=== PATIENT | male | born 2000 | race Caucasian/White ===

== ENCOUNTER 2024-05-29 18:36 | Emergency (ER) | payer BC, SELFPAY ==
[2024-05-29 18:49] VITALS: BP 142/94; PULSE 106; RESP 18; TEMP 37.6; O2SAT 96; BMI 30.1
--- NOTE | 2024-05-29 19:36 | ED_ITS ---
HPI - General Adult General Time Seen by Provider: 19:36 Date Seen: 05/29/24 Chief complaint: Unspecified Complaint, Adult Stated complaint: Lump on neck Time Seen by Provider: 05/29/24 19:36 Source: patient, family and RN notes reviewed Mode of arrival: ambulatory Limitations: no limitations History of Present Illness HPI narrative: Mario is a very pleasant 23-year-old with history of ADHD who comes to the emergency room with his mother for concerns regarding a lump on his left neck. Mario states that he has not been feeling well of your lately. A month ago he was on vacation and developed some back pain. He described it is between his shoulder blades and moving from side to side. He then noted back pain lower in his thoracic spine. At the most the pain is only 3 to 4/10. He did see a doctor 6 days ago at which time he was put on muscle relaxers and was given stretches. He states that the muscle relaxers actually did help. Four days ago he had the onset of discomfort in the left side of his neck. He did not note any redness or abnormality. Last night he had a small marble size swelling on the low neck and today it has become much larger. He has not have any difficulty swallowing or breathing but he notes that it just feels odd. He has not experienced any weight loss or night sweats. He has not had fever or chills. He has noticed that he seems to be more thirsty and he has been urinating quite a bit lately. He denies a sore throat a cough. He was exposed to COVID a month ago. He did not develop any symptoms that he knows of. At this time denies ear pain, chest pain, abdominal pain, nausea vomiting or diarrhea. No unusual lower extremity edema. He does have significant anxiety as his sister had thyroid cancer and this is what he is worried about. Is not noticed his heart racing or unusual weight loss. Related Data Home Medications ?Medication ?Instructions ?Recorded ?Confirmed albuterol sulfate 90 mcg/actuation 2 puff inhalation Q4-6H PRN 03/18/22 aerosol inhaler shortness of breath or wheezing escitalopram oxalate 10 mg tablet 10 mg PO DAILY 05/29/24 05/29/24 Allergies Allergy/AdvReac Type Severity Reaction Status Date / Time No Known Allergies Allergy Unknown Verified 03/17/22 09:49 Review of Systems Status of ROS: Reports: 10 or more systems reviewed and unremarkable except as noted in History and below Const: Denies: fever, chills or change in weight ENMT: Reports: neck pain; Denies: throat pain, throat swelling, difficulty swallowing, hoarseness or nasal congestion Cardio: Denies: chest pain, swelling of feet/ankles, lightheadedness or shortness of breath with exertion Resp: Denies: shortness of breath or cough GI: Denies: abdominal pain, nausea, vomiting, diarrhea or difficulty swallowing : Reports: urinary frequency; Denies: painful urination or urinary urgency Musculo: Reports: neck pain Integ/Breast: Reports: skin tenderness Neuro: Denies: headache Psych: Reports: anxiety Allergy/Immuno: Denies: throat swelling PFSH PFS Medical History Chest pain ?R07.9 - Chest pain, unspecified (ICD-10) 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 No significant distress. External ears eyes nose clear. Neck is supple with a small golf ball size mass that is not tender to the touch at the left lower neck. Appears to be medial to the SCM. No other masses are palpated. No real fluctuance or erythema. There is no significant tenderness. Heart is with regular rate and rhythm and lungs are clear bilaterally. Palpation down thoracic spine without pain. Abdomen is soft nontender. No lymphadenopathy noted in the axilla bilaterally. Lower extremities without edema. Pedal pulses are intact moving all extremities. Const: Vital Signs, click to edit/add: Vital Signs - 24 hr 05/29/24 18:49 Temperature 99.6 F Pulse Rate [Pulse Oximeter] 106 H Respiratory Rate 18 Blood Pressure [Ri ght Upper Arm] 142/94 H Pulse Oximetry 96 Oxygen Delivery Me thod Room Air Documenting provider has reviewed patient's vital signs: yes Course Course ED Course: Differential diagnosis includes but is not limited to lymphadenopathy, thyroid nodule, thyroid cyst, will place IV do labs to include CBC, comprehensive panel, mono, TSH, CRP urinalysis COVID influenza and RSV. Patient is very anxious and he is given Ativan 0.5 mg IV as well as 1 L of normal saline. Reevaluation(s) Reevaluation #1: Soft tissue neck shows a 3 and half by 3 in a 0.5 cm thyroid cyst. Given the rapid increase in size over 24 hours I did consult with both ENT and surgery. At this time will have ultrasound called in per surgeon request. Reevaluation #2: As we were waiting for official thyroid ultrasound read we were informed that t hese are not done overnight. I was able to talk to the head of academic technology who notes that this was a simple cyst. Vital Signs Vital signs: Initial Vital Signs Temperature 99.6 F 05/29/24 18:49 Temperature Source Temporal Artery Scan 05/29/24 18:49 Pulse Rate 106 H 05/29/24 18:49 Respiratory Rate 18 05/29/24 18:49 Blood Pressure 142/94 H 05/29/24 18:49 Blood Pressure Mean 110 H 05/29/24 18:49 Pulse Oximetry 96 05/29/24 18:49 Oxygen Delivery Method Room Air 05/29/24 18:49 Vital Signs Temperature 99.6 F 05/29/24 18:49 Pulse Rate 106 H 05/29/24 18:49 Respiratory Rate 18 05/29/24 18:49 Blood Pressure 142/94 H 05/29/24 18:49 Pulse Oximetry 96 05/29/24 18:49 Oxygen Delivery Method Room Air 05/29/24 18:49 Temperature 99.6 F 05/29/24 18:49 Pulse Rate 106 H 05/29/24 18:49 Respiratory Rate 18 05/29/24 18:49 Blood Pressure 142/94 H 05/29/24 18:49 Pulse Oximetry 96 05/29/24 18:49 Oxygen Delivery Method Room Air 05/29/24 18:49 Medications Administered Medications: Discontinued Medications Generic Name Dose Route Start Last Admin Trade Name Rafy PRN Reason Stop Dose Admin Sodium Chloride 1,000 mls @ 1,000 mls/hr 05/29/24 20:03 05/29/24 21:50 0.9 % Sodium Chloride 1000 Ml IV 05/29/24 21:02 Infused .Q1H REGINALDO Infusion Lorazepam 0.5 mg 05/29/24 20:03 05/29/24 20:20 Lorazepam 2 Mg/Ml Inj IVP 05/29/24 20:04 0.5 mg ONCE ONE Administration Medical Decision Making MDM Narrative Medical decision making narrative: 1. Thyroid cyst-patient notes some mild left neck pain over the last 4 days with the onset of a marble size swelling on the lower neck yesterday now golf ball size. CT did show a 3 and half by 3.5 cm thyroid cyst. There was some mild tracheal deviation. Patient is not complaining of difficulty swallowing nor breathing difficulties. Follow-up ultrasound done in the ED does not have official radiological read but appears to be a simple cyst. I had spoken with our surgeon earlier who suggests radiology guided aspiration with cytology. At this time will attempt arrangement of appointment and further care tomorrow morning. Patient will be called will be called with in regards to appointment. 2. Back pain-given the location of the swelling and complaints of back discomfort did do a chest abdomen and pelvis to ensure there was no evidence of other abnormalities. Patient does have incidental findings of bilateral renal calculi. He and his mom are informed of this. 3. Disposition-home at this time. Return for worsening symptoms and as needed. 0937 05/30/24 Addendum: US official read notes this to be a simple cyst. I was able to speak with Dr. Coreas once again this morning and contacted her office for follow up appt on behalf of the patient. He is scheduled for 11am. I called patient at home and he confirms that he is able to make this appointment. Medical Records Medical records reviewed: Yes I reviewed the patient's medical records Lab Data Lab results reviewed: Yes I reviewed the patient's lab results Labs: Lab Results 05/29/24 05/29/24 Range/Units 20:20 21:58 WBC 5.82 (4.50-11.00) K/uL RBC 5.48 (4.30-5.90) m/uL Hgb 15.7 (13.5-17.5) gm/dL Hct 45.9 (37.0-53.0) % MCV 84 (80-100) fL MCH 29 (26-34) pg MCHC 34 (32-36) gm/dL RDW Coeff of Garrett 12.5 (11.5-15.5) % Plt Count 283 (140-440) K/uL Neut % (Auto) 66.5 (42.0-72.0) % Lymph % (Auto) 23.2 (20-44) % [place] % (Auto) 8.4 (0.0-11.0) % Eos % (Auto) 1.2 (0.0-7.0) % Baso % (Auto) 0.5 (0.0-3.0) % Neut # (Auto) 3.87 (1.7-7.0) K/uL Lymph # (Auto) 1.35 (0.90-2.90) K/uL [place] # (Auto) 0.50 (0.00-0.90) K/UL Eos # (Auto) 0.07 (0.00-0.50) K/uL Baso # (Auto) 0.03 (0.00-0.30) K/uL Abs Immat Gran (auto) 0.01 (0.00-0.30) K/uL Imm/Tot Granulo (auto) 0.2 % Sodium 140 (135-149) mmol/L Potassium 3.9 (3.6-5.1) mmol/L Chloride 104 (96-114) mmol/L Carbon Dioxide 28 (20-32) mmol/L Anion Gap 8 (7-15) mEq/L BUN 15 (5-24) mg/dL Creatinine 0.9 (0.5-1.5) mg/dL Estimated Creat Clear 122.44 Estimated GFR 122 ml/min Glucose 104 (60-115) mg/dL Calcium 9.4 (8.4-10.6) mg/dL Total Bilirubin 0.4 (0.1-1.5) mg/dL AST 19 (12-35) U/L ALT 11 (4-50) U/L Alkaline Phosphatase 58 (40-150) U/L C-Reactive Protein < 0.5 L (0.5-1.0) mg/dL Total Protein 8.2 (6.0-8.3) g/dL Albumin 5.1 H (3.3-5.0) g/dL TSH 0.364 (0.270-4.200) uIU/mL Urine Color Yellow (Yellow) Urine Appearance Cloudy A (Clear) Urine pH 7.0 (5.0-8.5) Ur Specific [place] 1.015 (1.000-1.030) Urine Protein Negative (Negative) Urine Glucose (UA) Negative (Negative) Urine Ketones Negative (Negative) Urine Blood Negative (Negative) Urine Nitrite Negative (Negative) Urine Bilirubin Negative (Negative) Urine Urobilinogen 0.2 (0.2-1.0) Ur Leukocyte Esterase Negative (Negative) Urine RBC 0-2 (0-2) Urine WBC 0-2 (0-5) Ur Squamous Epith Cells Few (None-Few) Urine Bacteria Few A (None) SARS-CoV-2 (PCR) Negative SARS-CoV-2 (Negative) Monoscreen Negative (Negative) Influenza Type A (PCR) Negative PCR FLU A (Negative) Influenza Type B (PCR) Negative PCR FLU B (Negative) RSV (PCR) Negative PCR RSV (Negative) Imaging Data Soft tissue neck CT: Attestation: I have reviewed the pertinent imaging results. Radiologist's impression: No suspicious mucosal based lesion. No pathologically enlarged cervical lymph nodes. Normal parotid and submandibular glands. 3.8 cm left lower pole hypodense thyroid nodule with mild resultant rightward tracheal deviation. The lung apices are clear. The osseous structures are within normal limits. The major vascular structures are normal in appearance. The imaged orbits and intracranial structures are within normal limits. Impression: 3.8 cm hypodense left lower pole thyroid nodule resulting in mild rightward deviation of the trachea. Recommend further ultrasound characterization. CT Chest/Ab/Pelvis: Attestation: I have reviewed the pertinent imaging results. Discharge Plan Discharge Clinical Impression: Cyst, thyroid Patient Disposition: Home, Self-Care Condition: Unchanged Additional Instructions: Await phone call tomorrow morning regarding appointment for aspiration of the cyst contents and follow-up. Return to the emergency room as needed. Prescriptions: No Action escitalopram oxalate 10 mg tablet 10 mg PO DAILY albuterol sulfate 90 mcg/actuation HFA aerosol inhaler 2 puff inhalation Q4-6H PRN (Reason: shortness of breath or wheezing) Follow Up/Referrals: Hari Carter MD [Staff Physician] - Stand Alone Forms: [employer] Info Instructions
--- NOTE | 2024-05-29 20:03 | CRLHL7_ITS ---
For Patients: As a result of the Century Cures Act, medical imaging exams and procedure reports are released immediately into your electronic medical record. You may view this report before your referring provider. If you have questions, please contact your health care provider. Indication: Left anterior cervical mass, back pain. Technique: Contrast-enhanced CT of the neck multiplanar reconstructions utilizing 95 cc Isovue 370 iodinated intravenous contrast. Comparison: None available. Findings: No suspicious mucosal based lesion. No pathologically enlarged cervical lymph nodes. Normal parotid and submandibular glands. 3.8 cm left lower pole hypodense thyroid nodule with mild resultant rightward tracheal deviation. The lung apices are clear. The osseous structures are within normal limits. The major vascular structures are normal in appearance. The imaged orbits and intracranial structures are within normal limits. Impression: 3.8 cm hypodense left lower pole thyroid nodule resulting in mild rightward deviation of the trachea. Recommend further ultrasound characterization. Please note that all CT scans at this facility use dose modulation, iterative reconstruction, and/or weight-based dosing when appropriate to reduce radiation dose to as low as reasonably achievable. Dictated by Marshall Guaman MD @ 05/29/2024 9:10:39 PM (Electronically Signed)
--- NOTE | 2024-05-29 20:04 | CRLHL7_ITS ---
For Patients: As a result of the Century Cures Act, medical imaging exams and procedure reports are released immediately into your electronic medical record. You may view this report before your referring provider. If you have questions, please contact your health care provider. Indication: Neck mass with pain Technique: Postcontrast CT of the chest, abdomen, and pelvis with multiplanar reformats following 95 mL Isovue 370 IV. Comparison: None Findings: Chest: Lungs: No consolidation. No effusion. No pneumothorax. Mediastinum: No acute abnormality appreciated. Left thyroid cyst measures 3.7 x 3.2 centimeters with slight rightward deviation of the trachea. Lymph nodes: No gross lymphadenopathy. Soft tissues: No acute abnormality appreciated. Bones: No acute abnormality appreciated. Abdomen and Pelvis: Hepatobiliary: No significant parenchymal abnormality is appreciated. Spleen: Unremarkable. Pancreas: No acute abnormality appreciated. Adrenal glands: No acute abnormality appreciated. Kidneys: Bilateral nonobstructing renal stones. No hydronephrosis. No significant parenchymal abnormality appreciated. Bowel: No obstruction. No focal perienteric or pericolonic stranding is appreciated. The appendix is visualized and appears unremarkable. Vascular: No acute abnormality appreciated. Lymph nodes: No gross lymphadenopathy. Peritoneum: No free air. No free fluid. : No acute abnormality appreciated. Soft tissues: No acute abnormality appreciated. Bones: No acute fracture. No lytic or blastic lesion. Impression: 1. Left thyroid cyst measures 3.7 centimeters with slight rightward deviation of the trachea. Nonemergent outpatient ultrasound recommended for further characterization. 2. Bilateral nonobstructing renal stones. Please note that all CT scans at this facility use dose modulation, iterative reconstruction, and/or weight-based dosing when appropriate to reduce radiation dose to as low as reasonably achievable. Dictated by Prakash Garcia MD @ 05/29/2024 9:41:11 PM (Electronically Signed)
[2024-05-29] MEDS: 0.9 % SODIUM CHLORIDE 1000 ml 1,000 ML IV (20:20)
[2024-05-29] MEDS: LORazepam 2 MG/ML inj 0.5 MG IVP (20:20)
[2024-05-29 20:43] LABS: Basophils Absolute Auto 0.03 K/uL (0.00-0.30); Basophils Percent Auto 0.5 % (0.0-3.0); Chloride* 104 mmol/L (96-114); Eosinophils Absolute Auto 0.07 K/uL (0.00-0.50); Eosinophils Percent Auto 1.2 % (0.0-7.0); Hematocrit 45.9 % (37.0-53.0); Hemoglobin* 15.7 gm/dL (13.5-17.5); Immature Granulocytes Abs Auto 0.01 K/uL (0.00-0.30); Immature Granulocytes Pct Auto 0.2 %; Lymphocytes Absolute Auto 1.35 K/uL (0.90-2.90); Lymphocytes Percent Auto 23.2 % (20-44); Mean Corpuscular HGB Conc 34 gm/dL (32-36); Mean Corpuscular Hemoglobin 29 pg (26-34); Mean Corpuscular Volume 84 fL (80-100); Monocytes Percent Auto 8.4 % (0.0-11.0); Neutrophils Absolute Auto 3.87 K/uL (1.7-7.0); Neutrophils Percent Auto 66.5 % (42.0-72.0); Platelet Count* 283 K/uL (140-440); RDW Coefficient of Variation % 12.5 % (11.5-15.5); Red Blood Count 5.48 m/uL (4.30-5.90); Slide Review Reflex No; White Blood Count* 5.82 K/uL (4.50-11.00)
[2024-05-29 20:44] LABS: Albumin* 5.1 g/dL (3.3-5.0); Potassium* 3.9 mmol/L (3.6-5.1); Sodium* 140 mmol/L (135-149)
[2024-05-29 20:46] LABS: Creatinine* 0.9 mg/dL (0.5-1.5); Est. Creatinine Clearance* 122.44; Estimated Glomerular Filt Rate 122 ml/min; Mono Screen* Negative (Negative)
[2024-05-29 20:47] LABS: Alanine Aminotransferase* 11 U/L (4-50); Alkaline Phosphatase* 58 U/L (40-150); Anion Gap 8 mEq/L (7-15); Aspartate Amino Transferase* 19 U/L (12-35); Bilirubin Total* 0.4 mg/dL (0.1-1.5); Blood Urea Nitrogen* 15 mg/dL (5-24); Carbon Dioxide* 28 mmol/L (20-32); Glucose* 104 mg/dL (60-115); Total Protein* 8.2 g/dL (6.0-8.3)
[2024-05-29 20:48] LABS: Calcium* 9.4 mg/dL (8.4-10.6)
[2024-05-29 21:11] LABS: C Reactive Protein* < 0.5 mg/dL (0.5-1.0)
[2024-05-29 21:14] LABS: PCR FLU A Negative PCR FLU A (Negative); PCR FLU B Negative PCR FLU B (Negative); PCR RSV Negative PCR RSV (Negative); SARS PCR* Negative SARS-CoV-2 (Negative)
[2024-05-29 21:28] LABS: TSH With Reflex to FT4* 0.364 uIU/mL (0.270-4.200)
--- NOTE | 2024-05-29 22:26 | CRLHL7_ITS ---
For Patients: As a result of the Cures Act, medical imaging exams and procedure reports are released immediately into your electronic medical record. You may view this report before your referring provider. If you have questions, please contact your health care provider. INDICATION: Enlarged thyroid cyst. TECHNIQUE: Ultrasound thyroid with padgett-scale and color Doppler analysis. COMPARISON: CT chest abdomen pelvis 05/29/2024. FINDINGS: Right lobe: 4.5 x 2.0 x 1.2 cm. Lesion 1: None. Left lobe: 6.1 x 4.4 x 2.5 cm. Lesion 1: Cyst measuring 3.7 x 3.7 x 3.4 cm (TR 1) Isthmus: Unremarkable. Echotexture of the thyroid parenchyma is normal. Color Doppler analysis demonstrates normal vascularity. No evidence of lymphadenopathy or parathyroid mass. IMPRESSION: Left-sided thyroid cyst measuring up to 3.7 cm with a TI-RADS category of TR 1. No suspicious thyroid abnormality. - ACR TI-RADS [email or web address] TR1: Benign No FNA TR2: Not Suspicious No FNA TR3: Mildly Suspicious FNA if greater than or equal to 2.5 cm Follow if greater than or equal to 1.5 cm TR4: Moderately Suspicious FNA if greater than or equal to 1.5 cm Follow if greater than or equal to 1 cm TR5: Highly Suspicious FNA if greater than or equal to 1 cm Follow if greater than or equal to 0.5 cm Dictated by Marshall Hernández MD @ 05/30/2024 1:41:00 AM (Electronically Signed)
[2024-05-29 22:37] LABS: Appearance Urine Cloudy (Clear); Bilirubin Urine Negative (Negative); Blood Urine Negative (Negative); Color Urine Yellow (Yellow); Glucose Urine Negative (Negative); Ketones Urine Negative (Negative); Leukocyte Esterase Urine Negative (Negative); Nitrite Urine Negative (Negative); Protein Urine Negative (Negative); Specific Gravity Urine 1.015 (1.000-1.030); Urobilinogen Urine 0.2 (0.2-1.0)
[2024-05-29 22:54] LABS: Bacteria Urine Few; RBC Urine 0-2 (0-2); Squamous Epithelial Cell Urine Few (None-Few); WBC Urine 0-2 (0-5)
== END 2024-05-30 01:19 | disposition home or self-care (01) ==
PROVIDERS: Emergency Provider Family Medicine
DX: E04.1 Nontoxic single thyroid nodule (principal)
CPT/HCPCS: 36415; 70491; 71260; 74177; 76536; 80053; 81001; 84443; 85025; 86140; 86308; 87086; 87631; 96374; 99284; J2060; J7030; Q9967

== ENCOUNTER 2024-06-08 10:57 | Outpatient (CLI) | payer BC, SELFPAY ==
--- NOTE | 2024-06-08 11:15 | CRLHL7_ITS ---
For Patients: As a result of the Century Cures Act, medical imaging exams and procedure reports are released immediately into your electronic medical record. You may view this report before your referring provider. If you have questions, please contact your health care provider. INDICATION : THYROID CYST ASPIRATION TECHNIQUE : Ultrasound-guided fine needle aspiration of thyroid cyst. Comparison : CT 05/29/2024 FINDINGS : PROCEDURE: After the informed consent and time-out, ultrasound-guided aspiration of the thyroid nodule performed. 20 cc of clear fluid removed and discarded. No residual mass. Lidocaine was used for local anesthesia. No suspicious findings. Real-time imaging was used for guidance and needle placement. Post imaging ultrasound demonstrates no immediate complication. IMPRESSION : Successful ultrasound-guided aspiration of thyroid cyst. Dictated by Santiago Hayes MD @ 06/08/2024 12:02:11 PM (Electronically Signed)
== END 2024-06-08 10:58 | disposition home or self-care (01) ==
LOC: US 10:57
PROVIDERS: PCP Family Medicine; Visit Provider Surgery
DX: E04.1 Nontoxic single thyroid nodule (principal)
CPT/HCPCS: 10005

== ENCOUNTER 2025-04-27 13:32 | Outpatient (CLI) | payer BC, SELFPAY ==
--- NOTE | 2025-04-27 14:00 | CRLHL7_ITS ---
For Patients: As a result of the Century Cures Act, medical imaging exams and procedure reports are released immediately into your electronic medical record. You may view this report before your referring provider. If you have questions, please contact your health care provider. INDICATION: Anterior neck pain. COMPARISON: 05/29/2024. TECHNIQUE: CT soft tissue neck with IV contrast. Isovue 370, 115 cc IV FINDINGS: Normal bilateral parotid and submandibular glands. Compared to the previous exam, interval decrease in size of a low-attenuation cystic lesion of the left thyroid lobe now measuring 2 x 2.6 cm. Decreased mass effect upon the trachea. No surrounding inflammatory change. No enlarged cervical lymph nodes bilaterally. No supraclavicular superior mediastinal adenopathy. Nasopharynx and oropharynx are clear. No inflammation within the parapharyngeal fat pads or retropharyngeal space. Normal thickness of the epiglottis. Normal glottis with symmetric vocal cords. Airways patent. Lung apices are clear. Normal alignment of the cervical spine. No prevertebral soft tissue swelling. Visualized paranasal sinuses and mastoid air cells are clear. IMPRESSION: 1. No adenopathy. 2. Interval decrease in size of the cystic lesion of the left thyroid lobe. 3. Normal deep soft tissues of the neck. Please note that all CT scans at this facility use dose modulation, iterative reconstruction, and/or weight-based dosing when appropriate to reduce radiation dose to as low as reasonably achievable. Dictated by Hiro Guaman MD @ 04/28/2025 10:29:57 AM (Electronically Signed)
== END 2025-04-27 13:33 | disposition home or self-care (01) ==
LOC: CT 13:33
PROVIDERS: PCP Family Medicine; Visit Provider Family Medicine
DX: M54.2 Cervicalgia (principal); E07.9 Disorder of thyroid, unspecified
CPT/HCPCS: 70491; Q9967